=== PATIENT | female | born 1965 | race Caucasian/White ===

== ENCOUNTER → 2021-02-14 | Outpatient (CLI) | payer MEDICAID ==
[~2021-02-14] MED LIST: BUPR150T73 PO; DOCU-144 PO; GABA100C PO; IBUP200C8 PO; LEVO75TA PO; LISI2.5T PO; METO5TAB2 PO; MIRT7.5T8 PO; MULT-717 PO; NAPR220C62 PO; ONDA4TAB13 SL; SIMV10TA18 PO; SUMA50TA3 PO; TOPI100T8 PO; TOPI50TA8 PO; novolog
[2021-02-14 10:23] LABS: ALBUMIN 3.7 g/dL (3.4-5.0); ANION GAP 5 mmol/L (5-15); CALCIUM 8.8 mg/dL (8.5-10.1); CHLORIDE 110 mmol/L (98-107)
[2021-02-14 10:28] LABS: ALANINE AMINOTRANSFERASE 69 U/L (12-78); ALKALINE PHOSPHATASE 116 U/L (45-117); BILIRUBIN,TOTAL 0.3 mg/dL (0.2-1.0); CREATININE 0.95 mg/dL (0.55-1.02); TOTAL PROTEIN 7.5 g/dL (6.4-8.2)
== END | disposition home or self-care (01) ==
LOC: STAR 08:47
PROVIDERS: ATTEND Internal Medicine
DX: Z01.818 Encounter for other preprocedural examination (principal); R10.9 Unspecified abdominal pain; K86.89 Other specified diseases of pancreas; Z87.898 Personal history of other specified conditions; Z20.822 Contact with and (suspected) exposure to COVID-19
CPT/HCPCS: 36415; 80053; 93005; U0003

== ENCOUNTER 2021-02-18 05:41 | Day surgery (SDC) | payer MEDICAID ==
[~2021-02-18] VITALS: Ht 165.1 cm; Wt 64.0 kg
[2021-02-18 06:56] VITALS: BP 110/71
[2021-02-18] MEDS ORDERED: FENTANYL PF 100 MCG/2ML ONE (06:59)
[2021-02-18] MEDS ORDERED: MIDAZOLAM 1 MG/ML, 2ML ONE (06:59)
[2021-02-18] MEDS ORDERED: CHLORHEXIDINE 15 ML UDC PO ONE (07:00)
[2021-02-18] MEDS ORDERED: LACTATED RINGERS 1,000 ML IV SCH (07:00)
[2021-02-18] MEDS ORDERED: DIPHENHYDRAMINE 50 MG/ML, 1ML IVPush PRN (07:30)
[2021-02-18] MEDS ORDERED: KETOROLAC 30 MG/1 ML IV PRN (07:30)
[2021-02-18] MEDS ORDERED: LABETALOL 5MG/ML, 20ML IV PRN (07:30)
[2021-02-18] MEDS ORDERED: hydrALAzine 20 MG/ML, 1ML IV PRN (07:30)
[2021-02-18] MEDS ORDERED: HALOPERIDOL 5 MG/ML IV PRN (07:30)
[2021-02-18] MEDS ORDERED: DIAZEPAM 5 MG/ML, 2ML IVPush PRN (07:30)
[2021-02-18] MEDS ORDERED: PROMETHAZINE 25 MG/ML, 1ML IVPush PRN (07:30)
[2021-02-18] MEDS ORDERED: METOPROLOL 1 MG/ML, 5ML IV PRN (07:30)
[2021-02-18] MEDS ORDERED: FENTANYL PF 100 MCG/2ML IV PRN (07:30)
[2021-02-18] MEDS ORDERED: ONDANSETRON 2MG/ML, 2ML IVPush PRN (07:30)
[2021-02-18] MEDS ORDERED: EPHEDRINE 50 MG/ML, 1ML IVPush PRN (07:30)
[2021-02-18] MEDS ORDERED: ONDANSETRON 2MG/ML, 2ML ONE (07:56)
[2021-02-18] MEDS ORDERED: PROPOFOL 10 MG/ML, 50ML ONE (07:56)
== END 2021-02-18 09:50 | disposition home or self-care (01) ==
LOC: OR 05:41
PROVIDERS: ATTEND Internal Medicine
DX: K86.89 Other specified diseases of pancreas (principal); K31.89 Other diseases of stomach and duodenum; E10.22 Type 1 diabetes mellitus with diabetic chronic kidney disease; N18.9 Chronic kidney disease, unspecified; E78.5 Hyperlipidemia, unspecified; G43.909 Migraine, unspecified, not intractable, without status migrainosus; E03.9 Hypothyroidism, unspecified; Z88.8 Allergy status to other drugs, medicaments and biological substances; Z88.1 Allergy status to other antibiotic agents; Z79.899 Other long term (current) drug therapy; Z87.19 Personal history of other diseases of the digestive system; Z87.891 Personal history of nicotine dependence; Z98.890 Other specified postprocedural states
CPT/HCPCS: 43259; 82962; J2250; J2405; J2704; J7120; J3010